=== PATIENT | female | born 1995 | race Caucasian/White ===

== ENCOUNTER 2019-06-08 10:15 | Emergency (ER) | payer MEDICAID ==
[~2019-06-08] VITALS: Ht 165.1 cm; Wt 63.2 kg
[~2019-06-08 10:15] MED LIST: ALPR0.25 PO
[2019-06-08] MEDS ORDERED: SODIUM CHLORIDE FLUSH 10ML SYR IVF ONE (11:00)
[2019-06-08] MEDS ORDERED: SODIUM CHLORIDE 0.9% 1,000ML IVBOLUS ONE (11:00)
[2019-06-08] MEDS ORDERED: ONDANSETRON 2MG/ML, 2ML IVPush ONE (11:00)
[2019-06-08] MEDS ORDERED: ONDANSETRON 2MG/ML, 2ML ONE (11:14)
[2019-06-08 11:19] LABS: BASOPHILS % (AUTO) 0 % (0-1); EOSINOPHILS # (AUTO) 0.02 x10^3/uL (0-0.4); EOSINOPHILS % (AUTO) 0 % (1-7); LYMPHOCYTES # (AUTO) 0.72 x10^3/uL (1-3.4); LYMPHOCYTES % (AUTO) 7 % (22-44); MD NO; MEAN CORPUSCULAR HEMOGLOBIN 31.4 pg (27.0-34.8); MEAN CORPUSCULAR HGB CONC 34.4 g/dL (32.4-35.8); MEAN CORPUSCULAR VOLUME 91.1 fL (80-100); MEAN PLATELET VOLUME 7.9 fL (7.4-10.4); MONOCYTES # (AUTO) 0.16 x10^3/uL (0.2-0.8); MONOCYTES % (AUTO) 2 % (2-9); NEUTROPHILS % (AUTO) 91 % (42-75); PLATELET COUNT 267 x10^3/uL (130-400); RED CELL DISTRIBUTION WIDTH 12.8 % (9.6-15.2)
--- NOTE | 2019-06-08 11:21 | NUR ---
PT PRESENTS TO ED WITH C/O N/V SINCE LAST NIGHT, PT IS 16 WEEKS . PT STATES SHE ATE A QUESTIONABLE BURRITO BEFORE ONSET OF SX. PT DENIES VAG BLEEDING/DISCHARGE/CRAMPING. PT DENIES FEVER, COUGH, SICK CONTACTS OR TRAVEL. PT IS A&O, RSPS EVEN AND UNLABORED. REPEAT BP 90/43, HR 70'S, EDMD SAHM NOTIFIED. PIV PLACED, NS INFUSING. S/O AT BEDSIDE. LABS DRAWN FROM PIV PLACEMENT, URINE SAMPLE COLLECTED AND SENT TO LAB. AWAITING LAB RESULTS AND DISPO.
[2019-06-08 11:29] LABS: ALBUMIN 3.3 g/dL (3.4-5.0); ANION GAP 10 mmol/L (5-15); CALCIUM 8.9 mg/dL (8.5-10.1); CHLORIDE 102 mmol/L (98-107); CREATININE 0.66 mg/dL (0.55-1.02)
[2019-06-08 12:23] VITALS: BP 104/60
== END 2019-06-08 12:25 | disposition home or self-care (01) ==
LOC: ED 11:22
DX: O26.891 Other specified pregnancy related conditions, first trimester (principal); O21.8 Other vomiting complicating pregnancy; O99.331 Smoking (tobacco) complicating pregnancy, first trimester; Z3A.01 Less than 8 weeks gestation of pregnancy
CPT/HCPCS: 36415; 80048; 82040; 84702; 85025; 96361; 96374; 99283; J2405; J7030